=== PATIENT | male | born 1990 | race Caucasian/White ===

== ENCOUNTER 2019-06-20 16:18 | Outpatient (CLI) | payer OTHER | END 2019-06-20 16:19 | disposition home or self-care (01) | LOC: COV 16:18 | PROVIDERS: ATTEND Family Medicine | DX: R05 Cough (principal) | CPT/HCPCS: 81599 ==

== ENCOUNTER 2020-12-13 23:10 | Outpatient (CLI) | payer MEDICAID | END 2020-12-13 23:11 | disposition EMS.NT | LOC: EMS 23:10 | DX: R10.13 Epigastric pain (principal); R11.10 Vomiting, unspecified ==